=== PATIENT | male | born 1965 | race Caucasian/White ===

== ENCOUNTER 2023-08-10 09:03 | Emergency (ER) | payer SELFPAY ==
[~2023-08-10] VITALS: Ht 180.3 cm; Wt 97.5 kg
[2023-08-10 09:50] LABS: BASO % 0.8 % (0.0-1.0); EOS # 0.1 10*3/uL (0.0-0.4); HEMATOCRIT 48.2 % (42.0-52.0); LYMPH # 1.1 10*3/uL (1.3-4.4); LYMPH % 22.3 % (27.0-41.0); MEAN CELL VOLUME 92.2 fl (80.0-94.0); MEAN CORPUSCULAR HGB 31.4 pg (27.0-31.0); MEAN PLATELET VOLUME 8.9 fl (9.6-12.3); MONO # 0.4 10*3/uL (0.1-1.0); MONO % 7.3 % (3.0-9.0); NEUT # 3.3 10*3/uL (2.3-7.9); NEUT % 67.4 % (47.0-73.0); PLATELET COUNT AUTOMATED 194 10*3/uL (130-400); RED BLOOD COUNT 5.23 10*6/uL (4.50-5.90); WHITE BLOOD COUNT 4.9 10*3/uL (4.8-10.8)
[2023-08-10 10:01] LABS: ACT PARTIAL THROMBO TIME 27.1 SECONDS (20.0-32.1)
[2023-08-10 10:15] LABS: ALKALINE PHOSPHATASE 80 U/L (46-116); BUN 8 mg/dl (9-23); CHLORIDE 109 mmol/L (98-107); LIPASE 41 U/L (12-53); POTASSIUM 4.2 mmol/L (3.4-5.1); SGPT/ALT 14 U/L (5-49); TOTAL PROTEIN 6.9 gm/dL (6.0-8.0)
[2023-08-10 11:52] LABS: BILIRUBIN Negative (Negative); BLOOD Negative (Negative); CLARITY Cloudy (Clear); COLOR Yellow (Yellow); GLUCOSE Negative (Negative); KETONE Negative (Negative); LEUKO ESTERASE 2+ (Negative); NITRITE Negative (Negative); SPECIFIC GRAVITY 1.015 (1.001-1.030); UROBILINOGEN 0.2 E.U./dl (0.0-1.0)
[2023-08-10] MEDS ORDERED: MECLIZINE HCL25 M2 PO (13:02)
[2023-08-10] MEDS ORDERED: CIPRO500 MG PO (13:09)
== END 2023-08-10 13:05 | disposition home or self-care (01) ==
LOC: ED 09:03
PROVIDERS: Emergency Medicine
DX: N39.0 Urinary tract infection, site not specified (principal); R42 Dizziness and giddiness; R11.0 Nausea

== ENCOUNTER 2023-08-21 04:31 | Emergency (ER) | payer SELFPAY ==
[~2023-08-21] VITALS: Ht 180.3 cm; Wt 99.8 kg
[~2023-08-21 04:31] MED LIST: CIPRO500 MG PO; MECLIZINE HCL25 M2 PO
[2023-08-21 05:10] LABS: BILIRUBIN Negative (Negative); BLOOD Negative (Negative); CLARITY Clear (Clear); COLOR Yellow (Yellow); GLUCOSE Negative (Negative); KETONE Negative (Negative); LEUKO ESTERASE Trace (Negative); NITRITE Negative (Negative); PH 6.5 (4.5-8.0); SPECIFIC GRAVITY <= 1.005 (1.001-1.030); UROBILINOGEN 0.2 E.U./dl (0.0-1.0)
[2023-08-21 05:15] LABS: EPITHELIAL CELLS 16-20
[2023-08-21 05:41] LABS: ALKALINE PHOSPHATASE 82 U/L (46-116); BUN 10 mg/dl (9-23); CHLORIDE 110 mmol/L (98-107); LIPASE 44 U/L (12-53); POTASSIUM 3.8 mmol/L (3.4-5.1); SGPT/ALT 25 U/L (5-49); TOTAL PROTEIN 7.1 gm/dL (6.0-8.0)
[2023-08-21 06:03] LABS: BASO % 0.4 % (0.0-1.0); EOS # 0.1 10*3/uL (0.0-0.4); EOS % 1.6 % (1.0-4.0); LYMPH # 1.4 10*3/uL (1.3-4.4); LYMPH % 17.5 % (27.0-41.0); MEAN CELL VOLUME 90.1 fl (80.0-94.0); MEAN CORPUSCULAR HGB CONC 34.4 g/dl (33.0-37.0); MEAN PLATELET VOLUME 9.2 fl (9.6-12.3); MONO # 0.6 10*3/uL (0.1-1.0); MONO % 6.9 % (3.0-9.0); NEUT % 73.2 % (47.0-73.0); PLATELET COUNT AUTOMATED 214 10*3/uL (130-400); RED BLOOD COUNT 5.33 10*6/uL (4.50-5.90); RED CELL DISTRI WIDTH 12.9 % (0-14.5); WHITE BLOOD COUNT 8.1 10*3/uL (4.8-10.8)
[2023-08-21 06:28] LABS: ACT PARTIAL THROMBO TIME 28.6 SECONDS (20.0-32.1)
== END 2023-08-21 06:57 | disposition short-term general hospital (02) ==
LOC: ED 04:31
PROVIDERS: Internal Medicine
DX: N20.1 Calculus of ureter (principal); R42 Dizziness and giddiness; R11.2 Nausea with vomiting, unspecified; Z87.891 Personal history of nicotine dependence; Z98.890 Other specified postprocedural states

== ENCOUNTER 2023-09-21 23:42 | Emergency (ER) | payer SELFPAY ==
[~2023-09-21] VITALS: Ht 180.3 cm; Wt 99.8 kg
[2023-09-22 02:40] LABS: BUN 11 mg/dl (9-23); CHLORIDE 110 mmol/L (98-107); POTASSIUM 4.2 mmol/L (3.4-5.1)
== END 2023-09-22 03:33 | disposition home or self-care (01) ==
LOC: ED 23:42
PROVIDERS: Internal Medicine
DX: N20.0 Calculus of kidney (principal); Z87.891 Personal history of nicotine dependence; Z98.890 Other specified postprocedural states

== ENCOUNTER 2024-01-03 15:43 | Emergency (ER) | payer SELFPAY ==
[~2024-01-03] VITALS: Ht 180.3 cm; Wt 99.8 kg
[2024-01-03] MEDS ORDERED: HYDROmorphONE Hydrochloride 1 MG/ML SYR IV ONE (16:00)
[2024-01-03] MEDS ORDERED: Ondansetron Hydrochloride 4 MG/2 ML VIAL IV ONE (16:00)
[2024-01-03] MEDS ORDERED: SODIUM CHLORIDE 0.9% 1,000 ML IV ONE (16:00)
[2024-01-03 16:15] LABS: BASO % 0.7 % (0.0-1.0); EOS # 0.1 10*3/uL (0.0-0.4); HEMATOCRIT 43.8 % (42.0-52.0); LYMPH # 1.2 10*3/uL (1.3-4.4); LYMPH % 19.8 % (27.0-41.0); MEAN CORPUSCULAR HGB 30.8 pg (27.0-31.0); MEAN CORPUSCULAR HGB CONC 33.1 g/dl (33.0-37.0); MEAN PLATELET VOLUME 8.7 fl (9.6-12.3); MONO # 0.4 10*3/uL (0.1-1.0); MONO % 6.4 % (3.0-9.0); NEUT # 4.4 10*3/uL (2.3-7.9); NEUT % 71.9 % (47.0-73.0); PLATELET COUNT AUTOMATED 198 10*3/uL (130-400); RED BLOOD COUNT 4.71 10*6/uL (4.50-5.90); RED CELL DISTRI WIDTH 12.7 % (0-14.5); WHITE BLOOD COUNT 6.1 10*3/uL (4.8-10.8)
[2024-01-03 16:29] LABS: BUN 11 mg/dl (9-23); CHLORIDE 109 mmol/L (98-107); POTASSIUM 3.6 mmol/L (3.4-5.1)
[2024-01-03] MEDS ORDERED: Ketorolac Tromethamine 30 MG/ML VIAL IV ONE (16:40)
[2024-01-03 17:29] LABS: BILIRUBIN Negative (Negative); BLOOD 2+ (Negative); CLARITY Clear (Clear); COLOR Yellow (Yellow); GLUCOSE Negative (Negative); KETONE Negative (Negative); LEUKO ESTERASE Trace (Negative); NITRITE Negative (Negative); PH 6.5 (4.5-8.0)
[2024-01-03 17:42] LABS: BACTERIA 1+; RBC 31-40 rbc/hpf (0-2)
[2024-01-03] MEDS ORDERED: Ceftriaxone Sodium 1 GM/10 ML SYR IV ONE (17:45)
[2024-01-03] MEDS ORDERED: HYDROCODONE-AC1 EAC1 PO ×2 (17:50→18:00)
[2024-01-03] MEDS ORDERED: ONDANSETRON4 MG SL ×2 (17:52→18:00)
[2024-01-03] MEDS ORDERED: OMNICEF300 MG PO ×2 (17:52→18:00)
== END 2024-01-03 18:00 | disposition home or self-care (01) ==
LOC: ED 15:43
PROVIDERS: Nurse Practitioner Family
DX: N20.1 Calculus of ureter (principal); N39.0 Urinary tract infection, site not specified; Z90.49 Acquired absence of other specified parts of digestive tract

== ENCOUNTER 2024-06-23 16:19 | Emergency (ER) | payer OTHER ==
[~2024-06-23] VITALS: Wt 104.3 kg
[~2024-06-23 16:19] MED LIST changes: +HYDROCODONE-AC1 EAC1 PO; +OMNICEF300 MG PO; +ONDANSETRON4 MG SL
[2024-06-23] MEDS ORDERED: Ketorolac Tromethamine 30 MG/ML VIAL IV ONE (18:00)
[2024-06-23] MEDS ORDERED: SODIUM CHLORIDE 0.9% 1,000 ML IV ONE (18:00)
[2024-06-23] MEDS ORDERED: Ondansetron Hydrochloride 4 MG/2 ML VIAL IV ONE (18:00)
[2024-06-23] MEDS ORDERED: HYDROmorphONE Hydrochloride 0.5 MG/0.5 ML SYRINGE IV ONE ×2 (18:00→19:55)
[2024-06-23 18:12] LABS: BASO % 0.6 % (0.0-1.0); EOS % 0.6 % (1.0-4.0); HEMATOCRIT 49.7 % (42.0-52.0); LYMPH # 1.4 10*3/uL (1.3-4.4); LYMPH % 19.7 % (27.0-41.0); MEAN CELL VOLUME 92.4 fl (80.0-94.0); MEAN CORPUSCULAR HGB CONC 33.6 g/dl (33.0-37.0); MONO # 0.5 10*3/uL (0.1-1.0); MONO % 7.4 % (3.0-9.0); NEUT % 71.4 % (47.0-73.0); PLATELET COUNT AUTOMATED 213 10*3/uL (130-400); RED BLOOD COUNT 5.38 10*6/uL (4.50-5.90); RED CELL DISTRI WIDTH 12.6 % (0-14.5)
[2024-06-23 18:36] LABS: BUN 6 mg/dl (9-23); CHLORIDE 106 mmol/L (98-107); POTASSIUM 3.8 mmol/L (3.4-5.1)
== END 2024-06-23 22:56 | disposition short-term general hospital (02) ==
LOC: ED 16:19
PROVIDERS: Internal Medicine
DX: N20.0 Calculus of kidney (principal); R11.2 Nausea with vomiting, unspecified; Z90.49 Acquired absence of other specified parts of digestive tract

== ENCOUNTER 2024-09-12 23:56 | Emergency (ER) | payer OTHER ==
[~2024-09-12] VITALS: Ht 180.3 cm; Wt 102.1 kg
[2024-09-13] MEDS ORDERED: Ketorolac Tromethamine 30 MG/ML VIAL IV ONE (00:25)
[2024-09-13] MEDS ORDERED: Ondansetron Hydrochloride 4 MG/2 ML VIAL IV ONE (00:25)
[2024-09-13] MEDS ORDERED: SODIUM CHLORIDE 0.9% 500 ML IV ONE (00:25)
[2024-09-13 00:39] LABS: BASO % 0.5 % (0.0-1.0); EOS # 0.1 10*3/uL (0.0-0.4); HEMATOCRIT 47.7 % (42.0-52.0); MEAN CELL VOLUME 90.7 fl (80.0-94.0); MEAN CORPUSCULAR HGB 30.2 pg (27.0-31.0); MEAN CORPUSCULAR HGB CONC 33.3 g/dl (33.0-37.0); MEAN PLATELET VOLUME 9.2 fl (9.6-12.3); MONO # 0.6 10*3/uL (0.1-1.0); MONO % 7.2 % (3.0-9.0); NEUT # 5.2 10*3/uL (2.3-7.9); NEUT % 65.7 % (47.0-73.0); PLATELET COUNT AUTOMATED 231 10*3/uL (130-400); RED BLOOD COUNT 5.26 10*6/uL (4.50-5.90); RED CELL DISTRI WIDTH 13.2 % (0-14.5); WHITE BLOOD COUNT 7.9 10*3/uL (4.8-10.8)
[2024-09-13] MEDS ORDERED: HYDROmorphONE Hydrochloride 0.5 MG/0.5 ML SYRINGE IV ONE (00:45)
[2024-09-13 00:58] LABS: BUN 11 mg/dl (9-23); CHLORIDE 105 mmol/L (98-107); POTASSIUM 3.8 mmol/L (3.4-5.1)
[2024-09-13 02:12] LABS: BILIRUBIN Negative (Negative); BLOOD 3+ (Negative); CLARITY Clear (Clear); COLOR Yellow (Yellow); GLUCOSE Negative (Negative); KETONE 1+ (Negative); LEUKO ESTERASE 2+ (Negative); NITRITE Negative (Negative); PH 5.5 (4.5-8.0); UROBILINOGEN 0.2 E.U./dl (0.0-1.0)
[2024-09-13 02:19] LABS: WBC 31-40 wbc/hpf (0-5)
[2024-09-13 02:20] LABS: BACTERIA TRACE; RBC 16-20 rbc/hpf (0-2)
== END 2024-09-13 04:35 | disposition left against medical advice (07) ==
LOC: ED 23:56
PROVIDERS: Internal Medicine
DX: R10.9 Unspecified abdominal pain (principal); R11.2 Nausea with vomiting, unspecified; Z53.29 Procedure and treatment not carried out because of patient's decision for other reasons; Z88.5 Allergy status to narcotic agent; Z87.442 Personal history of urinary calculi; Z90.49 Acquired absence of other specified parts of digestive tract

== ENCOUNTER 2024-09-20 17:52 | Emergency (ER) | payer OTHER ==
[~2024-09-20] VITALS: Ht 180.3 cm; Wt 102.1 kg
[2024-09-20] MEDS ORDERED: SODIUM CHLORIDE 0.9% 1,000 ML IV ONE (18:35)
[2024-09-20] MEDS ORDERED: Ketorolac Tromethamine 15 MG/ML VIAL IV ONE (18:35)
[2024-09-20] MEDS ORDERED: fentaNYL CITRATE/PF 50 MCG/ML SYRINGE IV ONE (18:35)
[2024-09-20] MEDS ORDERED: Ondansetron Hydrochloride 4 MG/2 ML VIAL IV ONE (18:35)
[2024-09-20 18:52] LABS: BASO % 0.4 % (0.0-1.0); EOS % 0.1 % (1.0-4.0); HEMATOCRIT 47.3 % (42.0-52.0); MEAN CELL VOLUME 90.6 fl (80.0-94.0); MEAN CORPUSCULAR HGB 30.7 pg (27.0-31.0); MEAN CORPUSCULAR HGB CONC 33.8 g/dl (33.0-37.0); MONO # 0.4 10*3/uL (0.1-1.0); NEUT # 6.1 10*3/uL (2.3-7.9); NEUT % 81.9 % (47.0-73.0); PLATELET COUNT AUTOMATED 224 10*3/uL (130-400); RED BLOOD COUNT 5.22 10*6/uL (4.50-5.90); RED CELL DISTRI WIDTH 13.2 % (0-14.5); WHITE BLOOD COUNT 7.5 10*3/uL (4.8-10.8)
[2024-09-20 19:35] LABS: BUN 9 mg/dl (9-23); CHLORIDE 108 mmol/L (98-107); POTASSIUM 3.7 mmol/L (3.4-5.1)
[2024-09-20] MEDS ORDERED: TRAMADOL HCL50 MG PO (20:56)
[2024-09-20] MEDS ORDERED: fentaNYL CITRATE 100 MCG/2 ML VIAL IV ONE (21:00)
== END 2024-09-20 21:23 | disposition home or self-care (01) ==
LOC: ED 17:52
PROVIDERS: Emergency Medicine
DX: N13.2 Hydronephrosis with renal and ureteral calculous obstruction (principal); Z88.5 Allergy status to narcotic agent; Z90.49 Acquired absence of other specified parts of digestive tract

== ENCOUNTER 2024-11-30 12:19 | Observation (INO) | payer OTHER ==
[~2024-11-30] VITALS: Ht 180.3 cm; Wt 103.4 kg
[~2024-11-30 12:19] MED LIST changes: +TRAMADOL HCL50 MG PO
[2024-11-30 12:26] VITALS: BP 138/81
[2024-11-30] MEDS ORDERED: Ondansetron Hydrochloride 4 MG/2 ML VIAL IV ONE (12:50)
[2024-11-30] MEDS ORDERED: SODIUM CHLORIDE 0.9% 1,000 ML IV ONE (12:50)
[2024-11-30] MEDS ORDERED: Ketorolac Tromethamine 15 MG/ML VIAL IV ONE (12:55)
[2024-11-30] MEDS ORDERED: Meclizine Hydrochloride 25 MG TAB PO ONE (12:55)
[2024-11-30 13:03] LABS: BASO % 0.9 % (0.0-1.0); EOS # 0.1 10*3/uL (0.0-0.4); EOS % 1.7 % (1.0-4.0); HEMATOCRIT 45.6 % (42.0-52.0); MEAN CELL VOLUME 91.6 fl (80.0-94.0); MEAN CORPUSCULAR HGB 30.9 pg (27.0-31.0); MEAN CORPUSCULAR HGB CONC 33.8 g/dl (33.0-37.0); MEAN PLATELET VOLUME 8.7 fl (9.6-12.3); MONO # 0.4 10*3/uL (0.1-1.0); MONO % 7.5 % (3.0-9.0); NEUT # 3.1 10*3/uL (2.3-7.9); NEUT % 65.5 % (47.0-73.0); PLATELET COUNT AUTOMATED 204 10*3/uL (130-400); RED BLOOD COUNT 4.98 10*6/uL (4.50-5.90); RED CELL DISTRI WIDTH 12.9 % (0-14.5); WHITE BLOOD COUNT 4.7 10*3/uL (4.8-10.8)
[2024-11-30 13:22] LABS: BUN 13 mg/dl (9-23); CHLORIDE 111 mmol/L (98-107); POTASSIUM 3.9 mmol/L (3.4-5.1)
[2024-11-30] MEDS ORDERED: BISACODYL 10 MG SUPP R PRN (14:50)
[2024-11-30] MEDS ORDERED: Ondansetron Hydrochloride 4 MG/2 ML VIAL IV PRN (14:50)
[2024-11-30] MEDS ORDERED: ACETAMINOPHEN 325 MG TAB PO PRN (14:50)
[2024-11-30] MEDS ORDERED: BISACODYL 5 MG TAB PO PRN (14:50)
[2024-11-30] MEDS ORDERED: ACETAMINOPHEN 650 MG SUPP R PRN (14:50)
[2024-11-30] MEDS ORDERED: Magnesium Hydroxide 30 ML UDC PO PRN (14:50)
[2024-11-30] MEDS ORDERED: ASPIRIN, CHEWABLE 81 MG TAB PO ONE ×2 (15:20→15:30)
[2024-11-30] MEDS ORDERED: ATORVASTATIN CALCIUM 40 MG TABLET PO SCH (15:30)
[2024-11-30] MEDS ORDERED: METOPROLOL SUCCINATE XR 25 MG TAB PO SCH (15:30)
[2024-11-30] MEDS ORDERED: POTASSIUM CITR10 ME2 PO (16:21)
[2024-11-30] MEDS ORDERED: FLOMAX0.4 MG PO (16:26)
[2024-11-30 18:03] VITALS: BP 157/81
[2024-11-30 22:28] VITALS: BP 135/75
[2024-12-01] MEDS ORDERED: Pantoprazole Sodium 40 MG TAB PO SCH (06:00)
[2024-12-01 06:25] VITALS: BP 125/80
[2024-12-01 06:32] LABS: ACT PARTIAL THROMBO TIME 27.6 SECONDS (20.0-32.1)
[2024-12-01 06:40] LABS: BASO # 0.1 10*3/uL (0.0-0.1); BASO % 0.8 % (0.0-1.0); EOS # 0.2 10*3/uL (0.0-0.4); EOS % 2.5 % (1.0-4.0); HEMATOCRIT 45.1 % (42.0-52.0); MEAN CELL VOLUME 92.8 fl (80.0-94.0); MEAN CORPUSCULAR HGB 30.9 pg (27.0-31.0); MEAN CORPUSCULAR HGB CONC 33.3 g/dl (33.0-37.0); MEAN PLATELET VOLUME 9.1 fl (9.6-12.3); MONO # 0.4 10*3/uL (0.1-1.0); MONO % 6.8 % (3.0-9.0); NEUT # 3.9 10*3/uL (2.3-7.9); NEUT % 59.9 % (47.0-73.0); PLATELET COUNT AUTOMATED 207 10*3/uL (130-400); RED BLOOD COUNT 4.86 10*6/uL (4.50-5.90); RED CELL DISTRI WIDTH 13.1 % (0-14.5); WHITE BLOOD COUNT 6.5 10*3/uL (4.8-10.8)
[2024-12-01 06:45] LABS: ALKALINE PHOSPHATASE 66 U/L (46-116); BUN 15 mg/dl (9-23); CHLORIDE 109 mmol/L (98-107); CHOLESTEROL 144 mg/dL (<200); FREE T4 1.26 ng/dl (0.89-1.76); LDL CHOLESTEROL 101 mg/dL (9-159); POTASSIUM 4.3 mmol/L (3.4-5.1); SGPT/ALT 15 U/L (5-49); TOTAL PROTEIN 6.2 gm/dL (6.0-8.0); TRIGLYCERIDES 37 mg/dl (<150)
[2024-12-01 07:03] LABS: VITAMIN D, 25-HYDROXY 33.5 ng/mL (30-100)
[2024-12-01] MEDS ORDERED: Regadenoson 0.4 MG/5 ML SYR IV ONE (08:09)
[2024-12-01 08:53] VITALS: BP 127/63
[2024-12-01] MEDS ORDERED: Enoxaparin Sodium 40 MG/0.4 ML SYR SC SCH (10:00)
[2024-12-01] MEDS ORDERED: METOPROLOL SUCCINATE XR 25 MG TAB PO SCH (10:00)
[2024-12-01] MEDS ORDERED: ATORVASTATIN CALCIUM 40 MG TABLET PO SCH (10:00)
[2024-12-01] MEDS ORDERED: Tamsulosin Hydrochloride 0.4 MG CAP PO SCH (10:00)
[2024-12-01 10:50] VITALS: BP 152/78; BP 153/78
[2024-12-01 12:00] VITALS: BP 136/70
[2024-12-01 16:00] VITALS: BP 147/73
[2024-12-01 20:00] VITALS: BP 140/79
[2024-12-02] VITALS: BP 145/82
[2024-12-02 05:24] LABS: BUN 13 mg/dl (9-23); CHLORIDE 109 mmol/L (98-107)
[2024-12-02 06:01] LABS: BASO % 0.7 % (0.0-1.0); EOS # 0.2 10*3/uL (0.0-0.4); EOS % 2.7 % (1.0-4.0); MEAN CELL VOLUME 90.7 fl (80.0-94.0); MEAN CORPUSCULAR HGB 30.8 pg (27.0-31.0); MEAN PLATELET VOLUME 9.2 fl (9.6-12.3); MONO # 0.4 10*3/uL (0.1-1.0); MONO % 7.7 % (3.0-9.0); NEUT # 2.9 10*3/uL (2.3-7.9); NEUT % 53.6 % (47.0-73.0); PLATELET COUNT AUTOMATED 190 10*3/uL (130-400); RED BLOOD COUNT 4.74 10*6/uL (4.50-5.90); RED CELL DISTRI WIDTH 12.8 % (0-14.5); WHITE BLOOD COUNT 5.5 10*3/uL (4.8-10.8)
[2024-12-02 08:00] VITALS: BP 137/74
[2024-12-02] MEDS ORDERED: ATORVASTATIN CA40 M1 PO (11:37)
[2024-12-02] MEDS ORDERED: METOPROLOL SUCC25 M2 PO (11:37)
== END 2024-12-02 11:57 | disposition home or self-care (01) ==
LOC: ED 12:19 → EDHOLD 14:11 → ICCU 12-01 08:53 → 4E 12-02 06:27
PROVIDERS: Emergency Medicine; ADMIT Internal Medicine; ATTEND Internal Medicine
DX: R07.89 Other chest pain (principal); E66.811 Obesity, class 1; D72.819 Decreased white blood cell count, unspecified; E87.8 Other disorders of electrolyte and fluid balance, not elsewhere classified; R73.9 Hyperglycemia, unspecified; Z20.822 Contact with and (suspected) exposure to COVID-19; Z90.49 Acquired absence of other specified parts of digestive tract; Z88.5 Allergy status to narcotic agent; Z79.82 Long term (current) use of aspirin; Z79.899 Other long term (current) drug therapy; Z68.30 Body mass index [BMI] 30.0-30.9, adult

== ENCOUNTER → 2025-01-09 | Outpatient (CLI) | payer OTHER ==
[~2025-01-09] MED LIST changes: +ATORVASTATIN CA40 M1 PO; +FLOMAX0.4 MG PO; +METOPROLOL SUCC25 M2 PO; +POTASSIUM CITR10 ME2 PO
[2025-01-09 11:17] LABS: MEAN CELL VOLUME 92.4 fl (80.0-94.0); MEAN CORPUSCULAR HGB 30.9 pg (27.0-31.0); MEAN CORPUSCULAR HGB CONC 33.5 g/dl (33.0-37.0); MEAN PLATELET VOLUME 9.1 fl (9.6-12.3); RED BLOOD COUNT 4.98 10*6/uL (4.50-5.90); RED CELL DISTRI WIDTH 13.5 % (0-14.5); WHITE BLOOD COUNT 5.7 10*3/uL (4.8-10.8)
[2025-01-09 11:49] LABS: VITAMIN D, 25-HYDROXY 33.3 ng/mL (30-100)
[2025-01-09 11:51] LABS: ALKALINE PHOSPHATASE 71 U/L (46-116); BUN 13 mg/dl (9-23); CHLORIDE 106 mmol/L (98-107); CHOLESTEROL 174 mg/dL (<200); CPK 71 U/L (34-171); FREE T4 1.32 ng/dl (0.89-1.76); LDL CHOLESTEROL 118 mg/dL (9-159); POTASSIUM 4.2 mmol/L (3.4-5.1); SGPT/ALT 16 U/L (5-49); TOTAL PROTEIN 6.7 gm/dL (6.0-8.0); TRIGLYCERIDES 50 mg/dl (<150)
[2025-01-10 05:06] LABS: HBsAG SCREEN Negative (Negative); HCV Ab Non Reactive (Non Reactive); HEP B CORE Ab, IgM Negative (Negative)
== END | disposition home or self-care (01) ==
LOC: LAB 10:52
PROVIDERS: ATTEND Family Medicine
DX: Z12.5 Encounter for screening for malignant neoplasm of prostate (principal); N20.0 Calculus of kidney; E55.9 Vitamin D deficiency, unspecified; R53.83 Other fatigue; E78.00 Pure hypercholesterolemia, unspecified; M79.10 Myalgia, unspecified site

== ENCOUNTER → 2025-01-26 | Outpatient (CLI) | payer OTHER | END | disposition home or self-care (01) | LOC: RAD 12:01 | PROVIDERS: ATTEND Family Medicine | DX: M17.12 Unilateral primary osteoarthritis, left knee (principal); M11.262 Other chondrocalcinosis, left knee; M25.562 Pain in left knee ==

== ENCOUNTER → 2025-06-29 | Outpatient (CLI) | payer OTHER ==
[2025-06-29 10:27] LABS: BUN 12 mg/dl (9-23); SGPT/ALT 19 U/L (5-49)
== END | disposition home or self-care (01) ==
LOC: LAB 09:01
PROVIDERS: ATTEND Family Medicine
DX: M79.641 Pain in right hand (principal); M79.642 Pain in left hand; M79.10 Myalgia, unspecified site

== ENCOUNTER → 2025-07-06 | Outpatient (CLI) | payer OTHER ==
[2025-07-07 13:07] LABS: ANTISCLERODERMA-70 AB <0.2 AI (0.0-0.9)
== END | disposition home or self-care (01) ==
LOC: LAB 10:27
PROVIDERS: ATTEND Family Medicine
DX: M79.643 Pain in unspecified hand (principal); M79.2 Neuralgia and neuritis, unspecified

== ENCOUNTER 2025-07-10 12:12 | Inpatient (IN) | payer OTHER ==
[~2025-07-10] VITALS: Ht 180.3 cm; Wt 109.9 kg
[2025-07-10 12:31] VITALS: BP 163/93
[2025-07-10 13:03] LABS: MEAN CELL VOLUME 89.3 fl (80.0-94.0); MEAN CORPUSCULAR HGB 30.5 pg (27.0-31.0); MEAN PLATELET VOLUME 9.1 fl (9.6-12.3); NUCLEATED RED BLOOD CELL 0.0 % (0.0-0.0); NUCLEATED RED BLOOD CELL 0.0 10*3/uL (0.0-0.0); PLATELET COUNT AUTOMATED 222 10*3/uL (130-400); RED CELL DISTRI WIDTH 13.0 % (0-14.5)
[2025-07-10 13:04] LABS: MANUAL DIFF REFLEX YES
[2025-07-10 13:14] LABS: ACT PARTIAL THROMBO TIME 25.1 SECONDS (20.0-32.1)
[2025-07-10 13:25] LABS: PLATELET SUFFICIENCY NORMAL (NORMAL)
[2025-07-10 13:28] LABS: BUN 15 mg/dl (9-23); SGPT/ALT 16 U/L (5-49)
[2025-07-10 16:01] VITALS: BP 164/86
[2025-07-10] MEDS ORDERED: IOHEXOL 300 MG/ML 100 ML VIAL IV ONE (16:50)
[2025-07-10] MEDS ORDERED: MULTIVITAMIN1 EACH PO (17:33)
[2025-07-10 18:38] VITALS: BP 158/80
[2025-07-10 20:00] VITALS: BP 158/83
[2025-07-11] VITALS: BP 157/100
[2025-07-11 08:00] VITALS: BP 160/90
[2025-07-11] MEDS ORDERED: ASPIRIN ENTERIC COATED 81 MG TAB PO SCH (10:00)
[2025-07-11] MEDS ORDERED: ATORVASTATIN CALCIUM 40 MG TABLET PO SCH (10:00)
[2025-07-11] MEDS ORDERED: NITROGLYCERIN 0.2 MG PATCH T SCH (10:00)
[2025-07-11] MEDS ORDERED: METOPROLOL SUCCINATE XR 25 MG TAB PO SCH (10:00)
[2025-07-11 12:00] VITALS: BP 130/72
[2025-07-11 16:00] VITALS: BP 119/79
[2025-07-11] MEDS ORDERED: ACETAMINOPHEN 325 MG TAB PO PRN (16:10)
[2025-07-11 20:00] VITALS: BP 123/74
[2025-07-12] VITALS: BP 122/90
[2025-07-12 08:00] VITALS: BP 152/88
[2025-07-12] MEDS ORDERED: Metoclopramide Hydrochloride 10 MG/2 ML VIAL IV ONE (08:35)
[2025-07-12 12:00] VITALS: BP 132/80
[2025-07-12 16:00] VITALS: BP 108/63
[2025-07-12 20:00] VITALS: BP 152/87
[2025-07-12] MEDS ORDERED: ZOLPIDEM TARTRATE 5 MG TAB PO ONE (20:35)
[2025-07-13] VITALS: BP 152/87
[2025-07-13 05:12] LABS: BUN 12 mg/dl (9-23)
[2025-07-13 05:59] LABS: BASO # 0.0 10*3/uL (0.0-0.1); BASO % 0.6 % (0.0-1.0); EOS # 0.2 10*3/uL (0.0-0.4); EOS % 2.3 % (1.0-4.0); MEAN CELL VOLUME 92.5 fl (80.0-94.0); MEAN CORPUSCULAR HGB 30.6 pg (27.0-31.0); MEAN PLATELET VOLUME 9.5 fl (9.6-12.3); MONO # 0.5 10*3/uL (0.1-1.0); MONO % 7.6 % (3.0-9.0); NEUT # 3.8 10*3/uL (2.3-7.9); NEUT % 59.2 % (47.0-73.0); NUCLEATED RED BLOOD CELL 0.0 % (0.0-0.0); NUCLEATED RED BLOOD CELL 0.0 10*3/uL (0.0-0.0); PLATELET COUNT AUTOMATED 229 10*3/uL (130-400); RED CELL DISTRI WIDTH 12.9 % (0-14.5)
[2025-07-13 08:00] VITALS: BP 131/79
[2025-07-13] MEDS ORDERED: ASPIRIN ADULT L81 M2 PO (08:24)
[2025-07-13] MEDS ORDERED: AMLODIPINE BESYL5 MG PO (08:24)
[2025-07-13] MEDS ORDERED: ATORVASTATIN CA40 M1 PO (08:24)
[2025-07-13] MEDS ORDERED: METOPROLOL SUCC25 M2 PO (08:24)
[2025-07-13] MEDS ORDERED: IMDUR SA30 MG PO (08:24)
== END 2025-07-13 11:15 | disposition home or self-care (01) | DRG 313 ==
LOC: ED 12:12 → EDHOLD 15:26 → 5E 15:26
PROVIDERS: Nurse Practitioner Family; ADMIT Internal Medicine; ATTEND Internal Medicine
DX: R07.89 Other chest pain (principal); J44.9 Chronic obstructive pulmonary disease, unspecified; I10 Essential (primary) hypertension; I51.7 Cardiomegaly; Z88.5 Allergy status to narcotic agent; Z90.49 Acquired absence of other specified parts of digestive tract; F17.210 Nicotine dependence, cigarettes, uncomplicated; F12.90 Cannabis use, unspecified, uncomplicated; K76.0 Fatty (change of) liver, not elsewhere classified; N20.0 Calculus of kidney; F41.1 Generalized anxiety disorder

== ENCOUNTER → 2025-07-27 | Outpatient (CLI) | payer OTHER ==
[~2025-07-27] MED LIST changes: +AMLODIPINE BESYL5 MG PO; +ASPIRIN ADULT L81 M2 PO; +IMDUR SA30 MG PO; +MULTIVITAMIN1 EACH PO
[2025-07-27 14:36] LABS: PLATELET COUNT AUTOMATED 199.0 10*3/uL (130-400)
[2025-07-27 14:55] LABS: BUN 12 mg/dl (9-23)
== END | disposition home or self-care (01) ==
LOC: LAB 14:13
PROVIDERS: ATTEND Internal Medicine Cardiovascular Disease
DX: Z01.812 Encounter for preprocedural laboratory examination (principal); I20.0 Unstable angina

== ENCOUNTER 2025-08-02 12:07 | Emergency (ER) | payer OTHER ==
[~2025-08-02] VITALS: Wt 106.6 kg
[2025-08-02] MEDS ORDERED: ASPIRIN 325 MG TAB PO ONE (12:40)
[2025-08-02 12:58] LABS: BASO # 0.0 10*3/uL (0.0-0.1); BASO % 0.6 % (0.0-1.0); EOS # 0.1 10*3/uL (0.0-0.4); EOS % 0.9 % (1.0-4.0); MEAN CELL VOLUME 90.6 fl (80.0-94.0); MEAN CORPUSCULAR HGB 30.9 pg (27.0-31.0); MEAN PLATELET VOLUME 9.0 fl (9.6-12.3); MONO # 0.4 10*3/uL (0.1-1.0); MONO % 6.5 % (3.0-9.0); NEUT # 4.7 10*3/uL (2.3-7.9); NEUT % 73.7 % (47.0-73.0); NUCLEATED RED BLOOD CELL 0.0 % (0.0-0.0); NUCLEATED RED BLOOD CELL 0.0 10*3/uL (0.0-0.0); PLATELET COUNT AUTOMATED 259 10*3/uL (130-400); RED CELL DISTRI WIDTH 12.8 % (0-14.5)
[2025-08-02 13:11] LABS: ACT PARTIAL THROMBO TIME 20.6 SECONDS (20.0-32.1)
[2025-08-02 13:16] LABS: BUN 12 mg/dl (9-23)
[2025-08-02] MEDS ORDERED: LORazepam 1 MG TAB PO ONE (14:25)
== END 2025-08-02 14:40 | disposition home or self-care (01) ==
LOC: ED 12:07
DX: R07.89 Other chest pain (principal); R42 Dizziness and giddiness; R10.12 Left upper quadrant pain; F41.9 Anxiety disorder, unspecified; E66.9 Obesity, unspecified; F17.210 Nicotine dependence, cigarettes, uncomplicated; Z79.82 Long term (current) use of aspirin; Z88.5 Allergy status to narcotic agent; Z79.899 Other long term (current) drug therapy; Z68.30 Body mass index [BMI] 30.0-30.9, adult; Z87.442 Personal history of urinary calculi; Z90.49 Acquired absence of other specified parts of digestive tract